=== PATIENT | male | born 1955 | race Caucasian/White ===

== ENCOUNTER 2024-05-15 15:05 | Emergency (ER) | payer BC ==
[~2024-05-15] VITALS: Ht 172.7 cm; Wt 86.0 kg
[2024-05-15 15:13] VITALS: BP 120/80; PULSE 69; RESP 17; TEMP 37.1; O2SAT 95
[2024-05-15] MEDS: ACETAMINOPHEN 325MG TABLET PO ONE (16:04)
== END 2024-05-15 16:52 | disposition home or self-care (01) ==
LOC: ER 15:05
DX: S09.90XA Unspecified injury of head, initial encounter (principal); M79.605 Pain in left leg; I10 Essential (primary) hypertension; E78.5 Hyperlipidemia, unspecified; W22.09XA Striking against other stationary object, initial encounter; Y93.89 Activity, other specified; Y92.89 Other specified places as the place of occurrence of the external cause; Y99.8 Other external cause status
CPT/HCPCS: 73590; 99283